=== PATIENT | male | born 1995 ===

== ENCOUNTER 2019-08-29 09:16 | Outpatient (CLI) | payer BC, SELFPAY ==
[2019-08-30 11:49] LABS: COVID-19 RT-PCR UVMMC Result Negative (Negative)
== END 2019-08-29 09:36 ==
PROVIDERS: PCP Family Medicine; Visit Provider Family Medicine
DX: R05 Cough (principal); J02.9 Acute pharyngitis, unspecified
CPT/HCPCS: U0003